=== PATIENT | male | born 1955 | race African-American/Black ===

== ENCOUNTER 2019-08-30 14:08 | Emergency (ER) | payer OTHER, SELFPAY ==
[~2019-08-30 14:08] MED LIST: Iopamidol 370 76% 50 ML VIAL FS ONE
[2019-08-30 14:34] LABS: #Basophils 0.1 thou/uL (0.0-0.2); #Eosinphils 0.1 thou/uL (0.0-0.7); #Lymphocytes 1.9 thou/uL (1.20-3.40); #Monocytes 0.2 thou/uL (0.11-0.59); %Basophils 2.3 % (0.0-1.0); %Eosinophils 2.4 % (0.0-10.0); %Lymphocytes 35.3 % (21.0-51.0); %Monocytes 4.1 % (0.0-10.0); %Neutrophils 55.9 % (42.0-75.0); Hemoglobin 13.4 g/dL (14.0-18.0); Mean Corpuscular HGB CONC 31.9 g/dL (32.0-36.0); Mean Corpuscular Volume 91.1 fL (78.0-98.0); Platelet Count 224 thou/uL (130-400); RBC Distribution Width 13.8 % (11.5-14.5); Red Blood Cell (RBC) Count 4.62 mill/uL (4.70-6.10); White Blood Cell (WBC) Count 5.3 thou/uL (4.8-10.8)
[2019-08-30 14:54] LABS: ALT (SGPT) 7 U/L (8-55); AST (SGOT) 12 U/L (5-34); Albumin 4.6 g/dL (3.4-4.8); Alkaline Phosphatase 87 U/L (40-110); Anion Gap 10 mmol/L (10-20); BUN (Urea Nitrogen) 13 mg/dL (8.4-25.7); Bilirubin, Total 0.4 mg/dL (0.2-1.2); Calc. Creatinine Clearance 0 mL/min (70-130); Calcium 9.7 mg/dL (7.8-10.44); Carbon Dioxide 31 mmol/L (23-31); Chloride 103 mmol/L (98-107); Estimated GFR-MDRD Greater than 90; Globulin 2.6 g/dL (2.4-3.5); Glucose 94 mg/dL (80-115); Potassium 3.9 mmol/L (3.5-5.1); Protein, Total 7.2 g/dL (5.8-8.1); Sodium 140 mmol/L (136-145)
--- NOTE | 2019-08-30 15:03 | RAD ---
Left hip:2 views INDICATIONS:Injury with pain COMPARISON:None FINDINGS: Degenerative changes are noted with mild spurring from the femoral head and narrowing of th e joint space. Femoral head contour is normal. No evidence of fracture. No soft tissue abnormality. IMPRESSION: No acute finding.
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
[2019-08-30] MEDS ORDERED: Adacel (T-DAP) 0.5 ML SYRINGE ONE (15:38)
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
== END 2019-08-30 15:46 | disposition home or self-care (01) ==
LOC: ERS 14:08
DX: S00.83XA Contusion of other part of head, initial encounter (principal); S00.31XA Abrasion of nose, initial encounter; S40.212A Abrasion of left shoulder, initial encounter; I71.00 Dissection of unspecified site of aorta; I10 Essential (primary) hypertension; F17.210 Nicotine dependence, cigarettes, uncomplicated; Z79.899 Other long term (current) drug therapy; V89.2XXA Person injured in unspecified motor-vehicle accident, traffic, initial encounter
CPT/HCPCS: 70450; 71260; 72125; 74177; 80053; 84484; 85025; 90471; 90715; 93005; 96360; G0390; Q9967

== ENCOUNTER 2021-09-23 11:35 | Emergency (ER) | payer MEDICARE, OTHER ==
[2021-09-23] MEDS ORDERED: Boostrix 0.5 ML (Tdap) VIAL ONE (13:47)
[2021-09-23] MEDS ORDERED: traMADol HCl 50 MG TAB ONE (13:47)
[2021-09-23] MEDS ORDERED: Ibuprofen 800 MG TAB ONE (13:59)
[2021-09-23] MEDS ORDERED: Lidocaine 1% (PF) 30 ML VIAL ONE (14:54)
== END 2021-09-23 16:40 | disposition home or self-care (01) ==
LOC: ERS 11:35
DX: S62.601A Fracture of unspecified phalanx of left index finger, initial encounter for closed fracture (principal); Z23 Encounter for immunization; W23.1XXA Caught, crushed, jammed, or pinched between stationary objects, initial encounter; I10 Essential (primary) hypertension; M19.90 Unspecified osteoarthritis, unspecified site; F17.210 Nicotine dependence, cigarettes, uncomplicated
CPT/HCPCS: 11730; 26600; 90471; 90715; J2001

== ENCOUNTER 2021-09-24 16:58 | Emergency (ER) | payer OTHER | END 2021-09-24 18:42 | disposition left against medical advice (07) | LOC: ERS 16:58 | DX: Z53.21 Procedure and treatment not carried out due to patient leaving prior to being seen by health care provider (principal) ==